=== PATIENT | female | born 1945 | race Caucasian/White ===

== ENCOUNTER 2016-12-21 18:03 | Emergency (ER) ==
[2016-12-21 18:23] VITALS: BP 100/69
[2016-12-21] MEDS ORDERED: ZOFRAN ODT PO ONE (19:16)
--- NOTE | 2016-12-21 19:21 | PROVIDER DOCUMENTATION ---
HPI-General Adult - General Source: patient - History of Present Illness -Gen Adult Nature of Presenting Problems: 71 YOWF PRESENTS TO ED WITH C/O PT STATES SHE BEGAN HAVING NAUSEA AND VOMITING THIS MORNING AROUND 6:30. PT STATES SHE HAS HAD SOME LOOSE BOWELS A COUPLE OF DAYS AGO, BUT NONE NOW. <Ric Hughes - Last Filed: 12/21/16 20:09> <Emmanuel Beauchamp - Last Filed: 12/21/16 20:10> - General Chief Complaint: Nausea Stated Complaint: N/V/ Time Seen by Provider: 12/21/16 19:03 Allergies/Adverse Reactions: Patient Allergies Allergy/AdvReac Type Severity Reaction Status Date / Time No Known Allergies Allergy Verified 11/30/16 12:05 Home Medications: Home Medication List Medication Instructions Recorded Confirmed Last Taken Type Clopidogrel Bisulfate [Plavix] 75 mg PO DAILY 03/08/15 11/30/16 10/05/16 History Lisinopril/Hydrochlorothiazide 1 tab PO DAILY #90 tablet 03/21/15 11/30/1611/30 08:00 Rx [Lisinopril-Hctz 10-12.5 mg Tab] Famotidine [Pepcid] 20 mg PO DAILY #20 tablet 05/05/16 11/30/16 11/30/16 08:00 Rx Atorvastatin Calcium [Lipitor] 20 mg PO DAILY 10/02/16 11/30/16 11/30/16 08:00 History Tramadol [Ultram] 50 mg PO Q8HR #14 tablet 10/02/16 11/30/16 11/19/16 22:00 Rx Albuterol Sulfate Inhaler 1 puff INH [id number] #1 inhaler 10/05/16 11/30/16 10:00 Rx [Ventolin Hfa] Ondansetron [Zofran] 4 mg PO Q6H PRN PRN #15 tablet 11/20/16 11/30/16 Unknown Rx Polyethylene Glycol 3350 [Miralax] 17 gm PO DAILY PRN PRN #20 11/20/16 11/30/16 Unknown Rx [email or web address] Albuterol Sulfate [Proair Hfa] 8.5 gm IH Q4-6H PRN PRN #1 11/30/16 Unknown Rx [email or web address] Albuterol [Albuterol Neb] 2.5 mg INH Q4H PRN PRN #30 neb 11/30/16 Unknown Rx Prednisone 40 mg PO DAILY #8 tablet 11/30/16 Unknown Rx Sulfamethoxazole/Trimethoprim 1 each PO BID #20 tablet 11/30/16 Unknown Rx [Bactrim Ds Tablet] Ondansetron HCl [Zofran] 1 tab PO Q6H PRN PRN #12 tablet 12/21/16 Unknown Rx Review of Systems - Adult - REVIEW OF SYSTEMS - ADULT Constitutional: denies: chills, fever Eyes: reports: no symptoms reported Ears, Nose, Mouth & Throat: reports: no symptoms reported Cardiovascular: denies: chest pain, palpitations, syncope Respiratory: denies: cough, shortness of breath, wheezing Gastrointestinal: reports: abdominal pain (DISCOMFORT), nausea, vomiting. denies: diarrhea Genitourinary: reports: no symptoms reported Musculoskeletal: denies: back pain, neck pain Integumentary: reports: no symptoms reported Neurological: denies: dizziness/vertigo, headache/migraines, syncope Psychiatric: reports: no symptoms reported Endocrine: reports: no symptoms reported Hematologic/Lymphatic: reports: no symptoms reported Allergic/Immunologic: reports: no symptoms reported All Other Systems: Reviewed and Negative <Ric Hughes - Last Filed: 12/21/16 20:09> Past History - Adult - PAST MEDICAL HISTORY-ADULT Review of Records: reports: Nursing Assessment Review, Medications Reviewed Cardiovascular: reports: CAD, HTN, murmur Respiratory: reports: COPD, lung disease Gastrointestinal: reports: colitis, obstruction, other (ischemic bowel) Genitourinary: reports: chronic UTI's Musculoskeletal: reports: chronic pain, neck/back injury, orthopedic injury Neurological: reports: CVA, stroke deficits - PRIOR SURGERIES/PROCEDURES Surgical/Procedure History: reports: other (multiple bowel surgeries, brain coil x 2, fem-pop bypass, L sided carotid endarterectomy) - IMMUNIZATION STATUS Childhood Immunizations: See Nurse Assessment Flu Vaccine: See Nurse Assessment - FAMILY HISTORY Family History: reviewed, not pertinent - SOCIAL HISTORY Smoking: quit greater than 1 year, cigarettes Substance Use: denies Alcohol Use Frequency: never Living Situation: family <Ric Hughes - Last Filed: 12/21/16 20:09> Physical Exam-General - CONSTITUTIONAL General Appearance: alert, mild distress - EYES Eyes: PERRL/EOMI, pink conjunctivae - HEAD, EARS, NOSE, MOUTH & THROAT HENMT: normocephalic/atraumatic, moist mucous membranes - NECK Neck: non-tender, full range of motion, supple - RESPIRATORY Respiratory: chest non-tender, lungs clear, normal breath sounds - CARDIOVASCULAR Cardiovascular: normal peripheral pulses, regular rate, rhythm - GASTROINTESTINAL (ABDOMEN) Abdominal Exam: normal bowel sounds, non tender, soft - LYMPHATIC Lymphatic: no adenopathy - MUSCULOSKELETAL Back Exam: normal inspection, no CVA tenderness, no vertebral tenderness Extremity: normal range of motion, non-tender - SKIN Integumentary: normal color, normal turgor, warm/dry - NEUROLOGIC Neurologic: grossly normal - PSYCHIATRIC Psych/Mental Status: oriented x 3 <Ric Hughes - Last Filed: 12/21/16 20:09> Progress - PLAN OF CARE/RESULTS Progress/Plan/Lab Results: Laboratory Tests 12/21/16 12/21/16 12/21/16 19:25 19:25 19:25 WBC 5.43 RBC 4.34 Hgb 13.6 Hct 40.5 MCV 93.3 MCH 31.3 H MCHC 33.6 RDW Std Deviation 13.2 Plt Count 196 MPV 9.1 Immature Gran % (Auto) 0.2 Neut % (Auto) 76.2 H Lymph % (Auto) 15.5 L [place] % (Auto) 7.2 Eos % (Auto) 0.7 Baso % (Auto) 0.2 Immature Gran # (Auto) 0.01 Neut # (Auto) 4.14 Lymph # (Auto) 0.84 L [place] # (Auto) 0.39 Eos # (Auto) 0.04 Baso # (Auto) 0.01 Sodium 132 L Potassium 3.6 Chloride 96 L Carbon Dioxide 23 L Anion Gap 14 BUN 22 Creatinine 0.7 Estimated GFR/1.73 m2 > 60 BUN/Creatinine Ratio 31 Glucose 98 Calculated Osmolality 268 Calcium 9.0 Troponin T < 0.010 Orders Category Date Time Status acute [FLAT/UPRIGHT ABD/1 VIEW CHEST] [RAD] Stat Exams 12/21/16 19:17 Taken BMP [BASIC METABOLIC PANEL] [CHEM] Stat Lab 12/21/16 19:25 Completed CBC WITH ELECTRONIC DIFF [HEME] Stat Lab 12/21/16 19:25 Completed TROPONIN T Stat Lab 12/21/16 19:[address] W/POSS RFLX CULT [URINALYSIS] Stat Lab 12/21/16 19:17 Uncollected Ondansetron Odt [Zofran Odt] Med 12/21/16 19:16 Discontinued 4 mg PO NOW ONE EKG [EKG] Stat Ther 12/21/16 19:17 Ordered Vital Signs - 24 hr 12/21/16 18:19 Temperature 98 F Pulse Rate 73 Respiratory 18 Rate Blood Pressure 100/69 O2 Sat by Pulse 97 Oximetry Vital Signs - 24 hr 12/21/16 18:19 Temperature 98 F Pulse Rate 73 Respiratory 18 Rate Blood Pressure 100/69 O2 Sat by Pulse 97 Oximetry - EKG 1 Time of EKG reading by physician:: 19:24 EKG Read and Signed by:: Emmanuel Beauchamp EKG Interpretation (*Must complete 3 of following elements*): Abnormal Rate: 63 Rhythm: NSR D Lo: normal QRS: normal, RBB NM Interval: normal ST Wave: normal Comments: POSSIBLE LEFT ATRIAL ENLARGEMENT. INCOMPLETE RT BUNDLE BRANCH BLOCK. - XRAY 1 XRAY: Bilateral XRAY Study: Chest XRAY Interpretation: EMPHYSEMATOUS CHANGES <Ric Hughes - Last Filed: 12/21/16 20:09> Departure <Ric Hughes - Last Filed: 12/21/16 20:09> - Departure Time of Disposition Order: 20:05 Certified Medical Emergency: Emergent <Emmanuel Beauchamp - Last Filed: 12/21/16 20:10> - Departure DIAGNOSIS: Nausea Disposition: HOME 01 Condition: Stable Additional Instructions: clear liquids, followup with PCP on Saturday Prescriptions: Ondansetron HCl [Zofran] 1 tab PO Q6H PRN PRN #12 tablet PRN Reason: Nausea Referrals: Gladys Butt MD [Primary Care Provider] - Attestation - Scribe Verification/Attestation Scribe:: Ric Hughes Acting as Scribe for:: Emmanuel Beauchamp Scribe documention review:: This chart was documented by a scribe and accurately reflects the service the provider performed and the decisions made by the provider. <Ric Hughes - Last Filed: 12/21/16 20:09> Physician Attestation
[2016-12-21 19:37] LABS: MANUAL DIFF NEEDED? NO
[2016-12-21 19:40] LABS: BASO% 0.2 % (0.0-0.8); EOS# 0.04 X1000 (0.0-0.7); EOS% 0.7 % (0.0-10.0); HEMATOCRIT 40.5 % (37.0-47.0); HEMOGLOBIN 13.6 g/dL (12.0-16.0); IMM GRAN# 0.01 X1000 (0.0-0.04); IMM GRAN% 0.2 % (0.0-0.5); LYMPH# 0.84 X1000 (1.2-3.4); LYMPH% 15.5 % (20.5-51.1); MCH 31.3 PG (27-31); MCHC 33.6 g/dL (33-37); MCV 93.3 FL (81-99); MONO# 0.39 X1000 (0.11-0.59); MONO% 7.2 % (1.7-9.3); MPV 9.1 FL (7.4-10.4); NEUT% 76.2 % (42.2-75.2); PLT 196 X1000 (130-400); RBC 4.34 XMIL (4.2-5.4)
[2016-12-21 19:57] LABS: AGAP 14; BUN 22 mg/dL (8-22); CHLORIDE 96 mmol/L (98-107); COSMO 268; POTASSIUM 3.6 mmol/L (3.5-5.1); SODIUM 132 mmol/L (136-145); TCO2 23 mmol/L (25-35)
--- NOTE | 2016-12-22 09:32 | EKG Report ---
Test Performed on : 12/21/2016 7:23:24 PM Test Reason : pain Blood Pressure : / mmHG Vent. Rate : 063 BPM Atrial Rate : 063 BPM P-R Int : 160 ms QRS Dur : 106 ms QT Int : 440 ms P-R-T Axes : 082 -14 060 degrees QTc Int : 450 ms Normal sinus rhythm. Possible Left atrial enlargement Incomplete right bundle branch block Septal infarct (cited on or before 20-NOV-2016) Abnormal ECG When compared with ECG of 20-NOV-2016 11:47, Questionable change in initial forces of Septal leads Unconfirmed Result
--- NOTE | 2016-12-22 09:33 | Diag Imaging Result Document ---
PROCEDURE NAME: FLAT/UPRIGHT ABD/1 VIEW CHEST - 12/21/2016 FLAT AND UPRIGHT ABDOMEN: FINDINGS: There is gas and stool in the colon without evidence of dilatation, and the small bowel and stomach are not distended. There is no evidence of organomegaly or mass. IMPRESSION: No evidence of acute disease. PA CHEST: FINDINGS: There is COPD. The appearance of the chest has not changed significantly since 11/30/2016. IMPRESSION: COPD.
== END 2016-12-21 20:25 | disposition home or self-care (01) ==
LOC: P.ED 18:03
DX: R11.2 Nausea with vomiting, unspecified (principal); R94.31 Abnormal electrocardiogram [ECG] [EKG]; R10.9 Unspecified abdominal pain; I25.10 Atherosclerotic heart disease of native coronary artery without angina pectoris; I10 Essential (primary) hypertension; J44.9 Chronic obstructive pulmonary disease, unspecified; G89.29 Other chronic pain; I69.30 Unspecified sequelae of cerebral infarction; Z79.02 Long term (current) use of antithrombotics/antiplatelets; Z79.899 Other long term (current) drug therapy; Z87.440 Personal history of urinary (tract) infections; Z87.891 Personal history of nicotine dependence
CPT/HCPCS: 74022; 80048; 84484; 85025; 93005; 99283

== ENCOUNTER 2017-01-14 15:54 | Emergency (ER) ==
[2017-01-14 16:04] VITALS: BP 114/63
--- NOTE | 2017-01-14 16:41 | Diag Imaging Result Document ---
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 There is separation of the left lunate and scaphoid bone probably resulting from disruption of the ligaments. There is severe degenerative change between the scaphoid and the trapezium and trapezoid. No evidence of fracture or dislocation is present. The degree of carpal arthritis appears to be worse than on 03/11/2012. IMPRESSION: Severe wrist arthropathy. No evidence of acute bony disease.
[2017-01-14] MEDS ORDERED: NORFLEX IM ONE (16:59)
[2017-01-14] MEDS ORDERED: DECADRON IM ONE (16:59)
--- NOTE | 2017-01-14 17:00 | PROVIDER DOCUMENTATION ---
HPI-Musculoskeletal Pain/Inj <Rosie Hampton - Last Filed: 01/14/17 16:59> - GENERAL Source: patient - HX OF PRESENT ILLNESS-MUSKULOSKELTAL Quality of Pain: reports: aching Severity in ED: mild Onset/Duration: last night Timing: still present Any recent injury?: No Similar Symptoms Previously?: No Recently seen or treated by another doctor?: No - UPPER EXTREMITY PAIN/INJURY Extremities Pain Location: forearm: right, wrist: right Context / Method of Injury: reports: unknown <Silvia Kendrick - Last Filed: 01/14/17 17:18> - GENERAL Chief Complaint: Extremity Pain Stated Complaint: EXTREMITY PAIN Time Seen by Provider: 01/14/17 16:52 - HX OF PRESENT ILLNESS-MUSKULOSKELTAL Nature of Presenting Problem: Pt is a 71 yof who came to the ED with a cc of right wrist/forearm pain. Pt reports she had random forearm pain last night that radiated to her wrist. Pt reports she normally takes narco 10 for her chronic back pain. (Silvia Kendrick) Review of Systems - Adult - REVIEW OF SYSTEMS - ADULT Constitutional: denies: chills, fever Eyes: denies: decreased vision, double vision Ears, Nose, Mouth & Throat: reports: no symptoms reported Cardiovascular: reports: no symptoms reported Respiratory: reports: no symptoms reported Gastrointestinal: reports: no symptoms reported Genitourinary: reports: no symptoms reported Musculoskeletal: reports: bone pain (right wrist/forearm). denies: joint pain, muscle weakness Integumentary: reports: no symptoms reported Neurological: reports: no symptoms reported Psychiatric: reports: no symptoms reported Endocrine: reports: no symptoms reported Hematologic/Lymphatic: reports: no symptoms reported Allergic/Immunologic: reports: no symptoms reported All Other Systems: Reviewed and Negative <Silvia Kendrick - Last Filed: 01/14/17 17:18> Past History - Adult - PAST MEDICAL HISTORY-ADULT Major Childhood Illnesses: reports: denies history Cardiovascular: reports: CAD, HTN, murmur Respiratory: reports: COPD, lung disease Gastrointestinal: reports: colitis, obstruction, other (ischemic bowel) Obstetrical/Gynecological: reports: denies history Genitourinary: reports: chronic UTI's Musculoskeletal: reports: chronic pain, neck/back injury, orthopedic injury Neurological: reports: CVA, stroke deficits Endocrine/Immune: reports: denies history Other Conditions: reports: denies history - PRIOR SURGERIES/PROCEDURES Surgical/Procedure History: reports: other (multiple bowel surgeries, brain coil x 2, fem-pop bypass, L sided carotid endarterectomy) - IMMUNIZATION STATUS Childhood Immunizations: See Nurse Assessment Flu Vaccine: See Nurse Assessment - FAMILY HISTORY Family History: reviewed, not pertinent <Rosie Hampton - Last Filed: 01/14/17 16:59> - PAST MEDICAL HISTORY-ADULT Review of Records: reports: Old Records Reviewed, Nursing Assessment Review Major Childhood Illnesses: reports: denies history Cardiovascular: reports: HTN, hyperlipidemia, murmur Respiratory: reports: COPD Gastrointestinal: reports: denies history Obstetrical/Gynecological: reports: denies history Genitourinary: reports: denies history Musculoskeletal: reports: chronic pain Neurological: reports: CVA, TIA Psychiatric: reports: anxiety, depression Endocrine/Immune: reports: denies history Other Conditions: reports: denies history - IMMUNIZATION STATUS Childhood Immunizations: See Nurse Assessment Flu Vaccine: See Nurse Assessment - FAMILY HISTORY Family History: reviewed, not pertinent <Silvia Kendrick - Last Filed: 01/14/17 17:18> Physical Exam-Injury Related - Physical Exam-Injury Related Initial Vital Signs Reviewed: Yes General Appearance: appears well, alert Eyes: PERRL/EOMI, pink conjunctivae Head, Ears, Nose, Mouth & Throat: normocephalic/atraumatic, moist mucous membranes Neck: non-tender, full range of motion Respiratory: chest non-tender, lungs clear Cardiovascular: normal peripheral pulses, regular rate, rhythm Abdominal Exam: normal bowel sounds, non tender Lymphatic: no adenopathy Back Exam: normal inspection, no CVA tenderness Extremity: normal range of motion, tenderness (right wrist and forearm) Integumentary: normal color, warm/dry Neurologic: grossly normal Psych/Mental Status: normal mood/affect, normal thought content, normal thought process, oriented x 3 <Silvia Kendrick - Last Filed: 01/14/17 17:18> Progress <Rosie Hampton - Last Filed: 01/14/17 16:59> - XRAY 1 XRAY: Right XRAY Study: Wrist (severe wrist arthropathy no evidence of acute bony disease) <Silvia Kendrick - Last Filed: 01/14/17 17:18> - PLAN OF CARE/RESULTS Progress/Plan/Lab Results: Vital Signs - 24 hr 01/14/17 16:01 Temperature 98.1 F Pulse Rate 84 Respiratory 16 Rate Blood Pressure 114/63 O2 Sat by Pulse 99 Oximetry Orders Category Date Time Status Wrist Splint DIRECTED Care 01/14/17 17:00 Active FOREARM-RIGHT [RAD] Stat Exams 01/14/17 16:04 Completed Dexamethasone [Decadron] Med 01/14/17 16:59 Discontinued 4 mg IM NOW ONE Orphenadrine [Norflex] Med 01/14/17 16:59 Discontinued 60 mg IM NOW ONE (Silvia Kendrick) Procedures - SPLINTING Right Upper Extremity Pre-Procedure Neurovascular Exam: Intact Pre-Fabricated Splint: Thumb Spica Splint Application (Hand-Made): Thumb Spica <Silvia Kendrick - Last Filed: 01/14/17 17:18> Departure - Departure Time of Disposition Order: 16:59 Certified Medical Emergency: Emergent <Rosie Hampton - Last Filed: 01/14/17 16:59> - Departure Time of Disposition Order: 17:18 Certified Medical Emergency: Emergent <Silvia Kendrick - Last Filed: 01/14/17 17:18> - Departure DIAGNOSIS: Arthropathy of right wrist Disposition: HOME 01 Condition: Stable Additional Instructions: Follow up with Dr. Robledo, [facility] ED Follow Up Instructions: You have been treated by a care provider in the Emergency Department. These instructions are being provided to you so you can have an understanding of how to care for yourself upon discharge. Upon discharge from the Emergency Department, you are responsible for making arrangements for follow-up care by a physician of your choice. Take all prescribed medications as directed. Return to the Emergency Department immediately for any new or worsening symptoms. You may call the Physician Referral phone number at [phone] to obtain a list of Physicians who are taking new patients. Prescriptions: Methocarbamol [Robaxin] 500 mg PO BID #14 tablet Referrals: Gladys Butt MD [Primary Care Provider] - Koko Robledo MD [STAFF PHYSICIAN] - Instructions: Methocarbamol tablets, Wrist Pain Attestation - Scribe Verification/Attestation Scribe:: Silvia Kendrick Acting as Scribe for:: Rosie Hampton Scribe documention review:: This chart was documented by a scribe and accurately reflects the service the provider performed and the decisions made by the provider. <Silvia Kendrick - Last Filed: 01/14/17 17:18> Physician Attestation
== END 2017-01-14 17:31 | disposition home or self-care (01) ==
LOC: P.ED 15:54
DX: M12.831 Other specific arthropathies, not elsewhere classified, right wrist (principal); M25.531 Pain in right wrist; M79.631 Pain in right forearm; G89.29 Other chronic pain; M54.9 Dorsalgia, unspecified; I25.10 Atherosclerotic heart disease of native coronary artery without angina pectoris; I10 Essential (primary) hypertension; E78.5 Hyperlipidemia, unspecified; J44.9 Chronic obstructive pulmonary disease, unspecified; I69.30 Unspecified sequelae of cerebral infarction; Z79.899 Other long term (current) drug therapy
CPT/HCPCS: J1100; J2360